=== PATIENT | male | born 1945 | race African-American/Black ===

== ENCOUNTER 2017-03-21 12:53 | Outpatient (CLI) | payer MEDICARE ==
[~2017-03-21] VITALS: Ht 180.3 cm; Wt 85.5 kg
--- NOTE | ~2017-03-21 | HEMODYNAMI ---
PATIENT:EDELMIRA BERNSTEIN MEDICAL RECORD: [id number] : [birth year] [id number] ADMISSION DATE: 03/21/17 Generatedon:03/22/201713:10 Patient name: EDELMIRA BERNSTEIN Patient #: [id number] : 1945 Date of study: 03/22/2017 Page: Of Hemodynamic Procedure Report Patient Data Patient Demographics Procedure consent was obtained First Name: EDELMIRA Gender: Male Last Name: DAY : 1945 Patient #: [id number] Age: 71 year(s) Race: Black SSN: [id number] Additional ID: [id number] Contact details Address: [address] [place] [address] [address] State: [place] City: [facility] Zip code: [address] Admission Admission Data Admission Date: 03/21/2017 Admission Time: 12:53 Arrival Date: 03/21/2017 Arrival Time: 12:53 Admit Source: Other Insurance Payor: Medicare Room #: D.2119 Weight (lbs.): 188 Weight (kg.): 85.28 Lab Results Lab Result Date: 03/22/2017 Lab Result Time: 0:00 Biochemistry Name Units Result Min Max BUN mg/dl 17 --(---*)-- 7 18 Creatinine mg/dl 1.1 --(--*-)-- 0.6 1.3 CBC Name Units Result Min Max Hemoglobin g/dl 13.2 -*(----)-- 13.5 17.5 Procedure Procedure Types Cath Procedure Diagnostic Procedure [facility] w/Coronaries PCI Procedure Coronary Stent Initial Miscellaneous Procedures Moderate Sedation up to 30 minutes Procedure Description Procedure Date Procedure Date: 03/22/2017 Procedure Start Time: 12:56 Procedure End Time: 13:08 Procedure Staff Name Function Lopez Malave MD Performing Physician Ayanna Bourgeois RT Scrub Jayro Castaneda RN Nurse Lacey Olea RT Monitor Procedure Data Cath Procedure Fluoroscopy Diagnostic fluoroscopy Total fluoroscopy Time: 2.4 time: 2.4 min min Diagnostic fluoroscopy Total fluoroscopy dose: dose: 221.29 mGy 221.29 mGy Contrast Material Contrast Material Type Amount (ml) Isovue 370 86 Entry Location Entry Primary Successful Side Size Upsize Upsize Entry Closure [place] ccessful Closure Location (Fr) 1 (Fr) 2 (Fr) Remarks Device Remarks Radial Right 6 Fr Mechanical artery Short Compression Estimated blood loss: 5 ml Diagnostic catheters Device Type Used For End Catheter Placement Yee Care Dexterity 5Fr Multi-vessel OLVERA 4.0 catheter (NO Angiography CHARGE) Procedure Complications No complications Procedure Medications Medication Administration Route Dosage Oxygen NC 2 l/min Lidocaine 2% added to field 20 Heparin Flush Bag added to field 2 bags (1000units/500ml NS) 0.9% NaCl I.V. 100 ml/hr Versed I.V. 1 mg Fentanyl I.V. 50 mcg Radial Cocktail I.A. 1 syringe (Verapomil 2mg/Nitro 400mcg/Heparin 1500units) Versed I.V. 1 mg Fentanyl I.V. 50 mcg Lopressor I.V. 5 mg Heparin Bolus I.V. 4000 units Plavix P.O. 75 mg Hemodynamics Rest HGB: 13.2 (g/dl) Heart Rate: 94 (bpm) Snapshots Pre Cath Intra NCS Post Cath Vital Signs Time Heart Resp SPO2 NIBP (mmHg) Rhythm Pain Sedation Rate (ipm) (%) Status Level (bpm) 12:42:11 97 14 97 166/109(140) NSR 0 (11) 10(A) , No pain 12:46:27 94 16 96 158/104(142) NSR 0 (11) 10(A) , No pain 12:50:47 99 14 95 162/95(133) NSR 0 (11) 10(A) , No pain 12:55:09 99 15 94 163/102(138) NSR 0 (11) 9(A) , No pain 12:59:11 129 16 94 128/98(109) ST 0 (11) 9(A) , No pain 13:03:21 89 19 94 142/90(109) NSR 0 (11) 9(A) , No pain 13:07:33 82 15 95 141/92(119) NSR 0 (11) 10(A) , No pain Medications Time Medication Route Dose Verified Delivered Reason Note s Effectiveness by by 12:40:24 Oxygen NC 2 l/min Lopez Dial used for Frieda Castaneda RN procedure 12:40:31 Lidocaine 2% added 20ml Lopez Marroquin for local to vial Frieda Malave MD anesthetic field 12:40:38 Heparin Flush added 2 bags Lopez Marroquin used for Bag to Frieda Malave MD procedure (1000units/500ml field NS) 12:40:50 0.9% NaCl I.V. 100 Lopez Dial Per physician ml/hr Frieda Castaneda RN 12:45:37 Versed I.V. 1 mg Lopez Dial for sedation Frieda Castaneda RN 12:45:43 Fentanyl I.V. 50 mcg Lopez Dial for sedation Frieda Castaneda RN 12:58:06 Radial Cocktail I.A. 1 Lopez Marroquin for (Verapomil syringe Frieda Malave MD vasodilation 2mg/Nitro 400mcg/Heparin 1500units) 12:58:17 Versed I.V. 1 mg Lopez Dial for sedation Frieda Castaneda RN 12:58:21 Fentanyl I.V. 50 mcg Lopez Dial for sedation Frieda Castaneda RN 12:59:59 Lopressor I.V. 5 mg Lopez Dial Per physician Frieda Castaneda RN 13:02:26 Heparin Bolus I.V. 4000 Lopez Dial for veri fied units Frieda Castaneda RN anticoagulation with dr malave 13:08:22 Plavix P.O. 75 mg Lopez Dial for Frieda Castaneda RN antiplatelet therapy Procedure Log Time Note 12:22:26 Informed consent obtained and on chart 12:23:01 Arrival Date: 03/21/2017 12:53:00 PM 12:23:14 Insurance Payor : Medicare 12:23:15 Admit Source: Other 12::46 Lab Result : BUN 17 mg/dl 12::46 Lab Result : Hemoglobin 13.2 g/dl 12::46 Lab Result : Creatinine 1.1 mg/dl 12:24:03 Diagnostic Cath Status : Elective 12:24:21 Ayanna PORRAS(R) sent for patient. Start room use. 12:24:22 Time tracking: Regular hours 12:24:26 Plan of Care:Hemodynamics will remain stable., Cardiac rhythm will remain stable., Comfort level will be maintained., Respiratory function will remain adequate., Patient/ family verbilizes understanding of procedure., Procedure tolerated without complication., Recovers from procedure without complications.. 12:32:39 Patient received from Med II to CCL 3 Alert and oriented. Tansferred to table in Supine position. 12:32:40 Warm blankets applied, and katie hugger turned on for patient comfort. 12:32:40 Correct patient and procedure confirmed by team. 12:32:41 ECG and BP/O2 sat monitors applied to patient. 12:40:24 Oxygen 2 l/min NC was administered by Jayro Castaneda RN; used for procedure; 12:40:31 Lidocaine 2% 20ml vial added to field was administered by Lopez Malave MD; for local anesthetic; 12:40:38 Heparin Flush Bag (1000units/500ml NS) 2 bags added to field was administered by Lopez Malave MD; used for procedure; 12:40:50 0.9% NaCl 100 ml/hr I.V. was administered by Jayro Castaneda RN; Per physician; 12:40:55 Vital chart was started 12:41:23 Baseline sample Acquired. 12:41:29 Rhythm: sinus rhythm 12:41:31 Full Disclosure recording started 12:41:36 H&P Date Dictated: 03/22/2017 New H&P dictated by physician.. 12:41:37 Pre-procedure instructions explained to patient. 12:41:38 Pre-op teaching completed and patient verbalized understanding. 12:41:39 Family in waiting room. 12:41:40 Patient NPO since Midnight. 12:41:46 Is the patient allergic to Iodine/contrast media? No. 12:41:49 Was the patient premedicated? No 12:42:32 Is patient on blood thinner?Yes 12:42:35 ACC The patient was administered the following blood thiners within the last 24 hours: ACCPlavix 12:42:39 Patient diabetic? Yes. 12:42:44 Previous problem with sedation/anesthesia? No ? 12:42:46 Snore? Yes 12:42:47 Sleep apnea? No 12:42:49 Deviated septum? No 12:42:49 Opens mouth fully? Yes 12:42:50 Sticks out tongue? Yes 12:42:55 Airway obstruction? Yes copd 12:42:59 Dentures? Yes in tight 12:43:03 Pre procedure: right dorsailis pedis pulse 1+ Palpable, but thready & weak; easily obliterated 12:43:06 Patient pain scale 0/10 ?. 12:43:28 IV patent on arrival in right forearm with 0.9% NaCl at [facility]. 12:43:32 Lab results completed and on chart. 12:43:52 Right Radial & Right Groin area was prepped with chlora-prep and draped in sterile fashion 12:43:53 Alarms reviewed by R. N. 12:43:53 Sharps counted by scrub and verified by R.N. 12:44:01 Physician arrived 12:44:02 --------ALL STOP TIME OUT------ 12:44:02 Final Timeout: patient, procedure, and site verified with staff and physician. All members of the team are in agreement. 12:44:04 Right Radial & Right Groin site verified by team. 12:44:07 Physical assessment completed. ASA score P 2 - A patient with mild systemic disease as per Lopez Malave MD. 12:44:12 Sedation plan: IV Moderate Sedation Versed, Fentanyl 12:44:27 Use device set Radial Dx 12:44:29 Acist Syringe opened to sterile field. 12:44:29 Medline Cath Pack opened to sterile field. 12:44:29 Bag Decanter opened to sterile field. 12:44:30 Terumo 6Fr Slender Glidesheath opened to sterile field. 12:44:30 St Ayaz 260cm J .035 wire opened to sterile field. 12:44:31 Acist Hand Control opened to sterile field. 12:44:31 Acist Manifold opened to sterile field. 12:44:31 Tegaderm 4 x 4 opened to sterile field. 12:45:37 Versed 1 mg I.V. was administered by Jayro Castaneda RN; for sedation; 12:45:43 Fentanyl 50 mcg I.V. was administered by Jayro Castaneda RN; for sedation; 12:54:27 Zero performed for pressure channel P1 12:54:35 Procedure started. 12:56:08 Local anesthetic to right radial artery with Lidocaine 2% by Lopez Malave MD.INITIAL ACCESS ONLY 12:56:24 A 6 Fr Short sheath was inserted into the Right Radial artery 12:58:06 Radial Cocktail (Verapomil 2mg/Nitro 400mcg/Heparin 1500units) 1 syringe I.A. was administered by Lopez Malave MD; for vasodilation; 12:58:17 Versed 1 mg I.V. was administered by Jayro Castaneda RN; for sedation; 12:58:21 Fentanyl 50 mcg I.V. was administered by Jayro Castaneda RN; for sedation; 12:58:21 A zoiduerity 5Fr OLVERA 4.0 catheter (NO CHARGE) was advanced over the wire and used for Multi-vessel Angiography. 12:58:51 LV gram done using RICKS 12:58:54 Injector settings: Ml/sec: 5, Volume: 15, 12:58:55 LV hemodynamics recorded. 12:59:06 EF : 60 % 12:59:09 LCA angiography performed. 12:59:35 Injector settings: Ml/sec: 3, Volume: 6, 12:59:59 Lopressor 5 mg I.V. was administered by Jayro Castaneda RN; Per physician; 13:00:43 RCA angiography performed. 13:00:46 Injector settings: Ml/sec: 3, Volume: 6, 13:00:49 Catheter removed. 13:01:27 Catheter removed. 13:01:29 Proceeding to intervention. 13:01:51 Sadler Whisper J 300cm 0.014 guide wire opened to sterile field. 13:01:52 IMT ([employer]) BasixCompak Inflation Kit opened to sterile field. 13:02:21 Cordis 6FR XBLAD 3.5 guide catheter opened to sterile field. 13:02:26 Heparin Bolus 4000 units I.V. was administered by Jayro Castaneda RN; for anticoagulation; verified with dr malave 13:04:10 6 Fr xblad 3.5 guide catheter was inserted over the wire 13:04:16 whisper wire advanced. 13:04:18 Wire advanced across lesion. 13:04:40 Inflation Number: 1 A Medtronic Integrity 2.5 x 14 stent was prepped and advanced across the Mid LAD. The stent was deployed at 11 NELIDA for 0:10 (min:sec). 13:04:52 Stent catheter was removed intact over wire. 13:04:54 Wire removed. 13:04:54 Guide catheter removed. 13:05:08 Terumo TR Band Standard opened to sterile field. 13:06:17 Sheath removed intact; hemostasis achieved with Mechanical Compression to the Right Radial artery. 13:06:20 Procedure ended.(Physican Out) 13:07:06 Fluoroscopy time 02.40 minutes. 13:07:15 Flurop Dose total: 221.29 13:07:15 Fluoroscopy dose: 221.29 mGy 13:07:27 Contrast amount:Isovue 370 86ml. 13:07:28 Sharps counted by scrub and verified by R.N. 13:07:32 TR band inflated with 10cc of air. 13:07:34 Insertion/operative site no bleeding no hematoma. 13:07:41 Post right radial artery:stable 13:07:43 Post Procedure Pulses reassessed and unchanged 13:07:47 Post procedure rhythm: unchanged. 13:07:51 Estimated blood loss: 5 ml 13:07:59 Post procedure instruction explained to patient.Patient verbalizes understanding. 13:08:00 Patient needs reinforcement of post procedure teaching. 13:08:16 Procedure type changed to Cath procedure, Diagnostic procedure, LHC, LHC w/Coronaries, PCI procedure, Coronary Stent Initial, Miscellaneous Procedures, Moderate Sedation up to 30 minutes 13:08:17 Procedure and supply charges have been captured, reviewed, submitted and are correct. 13:08:21 Procedure Complication : No complications 13:08:22 Plavix 75 mg P.O. was administered by Jayro Castaneda RN; for antiplatelet therapy; 13:08:25 Vital chart was stopped 13:08:28 See physician's report for complete and final results. 13:08:30 Report given to [facility]. 13:08:34 Patient transfered to [facility] with Stretcher. 13:08:37 Procedure ended. 13:08:37 Full Disclosure recording stopped 13:08:46 ACC-PCI Only Patient was given prescriptions, or instructed by Lopez Malave MD to start/continue the following medications upon discharge: Plavix 13:08:47 End room use (Document Last) 13:10:10 Patient Weight : 85.28 kg Intervention Summary Intervention Notes Time ActionType Lesion and Equipment Action# Pressure Duration Attributes Used 13:04:40 Place stent Mid LAD Medtronic 1 11 00:10 Integrity 2.5 x 14 stent Device Usage Item Name Manufacture Quantity Catalog Hospital Part Current Minimal Lot# / Number Charge Number Stock Stock Serial# Code Acist Acist 1 [id number] 250835 879606 569731 20 Syringe Medical Systems Inc Medline Cardinal 1 [id number] 988275 65845 712492 5 Cath Pack Health Bag Microtek 1 2002S [id number] 81948 879640 5 Decanter Medical Inc. Terumo 6Fr Terumo 1 [id number] 551838 632490 365380 [address] St Ayaz 1 391760 441369 788715 629781 30 260cm J .035 wire Acist Hand Acist 1 44588 934281 574325 732896 5 Control Medical Systems Inc Acist Acist 1 00621 964564 570429 551587 5 Manifold Medical Systems Inc Tegaderm 4 3M 1 1626W 834531 270332 445220 5 x 4 Medtronic Medtronic 1 [id number] 169739 237806 5 Dexterity 5Fr OLVERA 4.0 catheter (NO CHARGE) Sadler Sadler 1 [id number] 899069 448297 150342 5 [facility] Vascular 300cm 0.014 guide wire Merit Merit 1 [id number] 241789 755781 815761 15 [employer] Medical Inflation Kit Cordis 6FR Cardinal 1 [id number] 946869 246681 535747 10 XBLAD 3.5 Health guide catheter Medtronic Medtronic 1 [id number] 413956 207242 2 [id number] Integrity 2.5 x 14 stent Terumo TR Terumo 1 [id number] 778752 485368 832030 40 Band Standard Signature Audit [place] Stage Time Signature Unsigned Intra-Procedure 03/22/2017 Lacey Olea 1:10:28 PM RT(R) Signatures Monitor : Lacey Olea RT Signature : Date : Time : [facility] [address] [place] [address]
[2017-03-21 13:45] LABS: BASOPHILS 0.3 % (0-2); EOSINOPHILS 2.1 % (0-7); HEMATOCRIT 39.3 % (42.0-54.0); HEMOGLOBIN 13.2 g/dL (13.5-17.5); IMMATURE GRANULOCYTES 0.3 % (0-5); LYMPHOCYTES 32.4 % (15-50); MCH 31.7 pg (26.0-34.0); MCHC 33.6 g/dL (31.0-37.0); MCV 94.5 fL (80.0-100.0); MEAN PLATELET VOLUME 9.5 fL (7.4-10.4); MONOCYTES 8.2 % (2-11); NEUTROPHILS 56.7 % (40-80); PLATELET COUNT 240 10x3/uL (130-400); RBC 4.16 10x6/uL (4.20-6.10); RDW 11.6 % (11.5-14.5); WBC 5.8 10x3/uL (4.8-10.8)
[2017-03-21 14:16] LABS: ALBUMIN 3.9 g/dL (3.4-5.0); ALKALINE PHOSPHATASE 68 U/L (46-116); ALT (SGPT) 22 U/L (10-68); CALC OSMOLALITY 285 mosm/kg (275-300); CALCIUM 9.1 mg/dL (8.5-10.1); CARBON DIOXIDE 29.6 mmol/L (21.0-32.0); CHLORIDE - SERUM 102 mmol/L (98-107); CREATININE - SERUM 1.1 mg/dL (0.6-1.3); GLUCOSE 237 mg/dL (74-106); POTASSIUM - SERUM 3.9 mmol/L (3.5-5.1); PROTEIN - SERUM 7.3 g/dL (6.4-8.2); SODIUM 138 mmol/L (136-145); UREA NITROGEN 17 mg/dL (7-18); eGFR NON AFRICAN AMERICAN 70 mL/min (90-120)
[2017-03-21 14:27] LABS: CHOL - HDL RATIO 5.8 ratio (2.3-4.9); CHOLESTEROL, TOTAL 191 mg/dL (0-200); CKMB 1.4 U/L (0.0-3.6); CREATINE KINASE 200 UL (21-232); HDL CHOLESTEROL 33 mg/dL (32-96); LDL CHOLESTEROL 141 mg/dL (0-100); LDL-HDL RATIO 4.3 ratio (1.5-3.5); PRO BNP 78 pg/mL (0-125); TRIGLYCERIDE 88 mg/dL (30-200); TROPONIN-I < 0.017 ng/mL (0.000-0.060)
--- NOTE | 2017-03-21 19:55 | NUR ---
RECEIVED PT TO ROOM 2118 ALERT O X3. FAMILY IN ROOM. REVIEWED HOME MEDS WITH PT AND UPDATED MED REC FOR MD REVIEW IN AM. RIGHT AC IVSL. ROOM AIR PLACED ON TELE AT THIS TIME. SR 86. ORIENTED TO ROOM AND CALL LIGHT. NO C/O CP OR SOB AT THIS TIME. WILL CONT TO MONITOR.
[2017-03-21 20:00] VITALS: BP 161/89
[2017-03-21] MEDS ORDERED: PRINIVIL20 MG PO (22:32)
[2017-03-21] MEDS ORDERED: SYMBICORT 16010.2 GM INH (22:32)
[2017-03-21] MEDS ORDERED: GLUCOPHAGE500 MG PO (22:32)
[2017-03-21] MEDS ORDERED: VENTOLIN HFA18 GM INH (22:33)
[2017-03-21 22:37] VITALS: BP 161/89; Ht 180.3 cm; Wt 85.5 kg
[2017-03-22] VITALS: BP 139/82
[2017-03-22 04:00] VITALS: BP 147/86
--- NOTE | 2017-03-22 04:40 | NUR ---
PACKAGER HAND AT BEDSIDE FOR VS. NEEDS ADDRESSED AT THIS TIME. CALL LIGHT IN REACH. WILL CONT TO MONITOR.
[2017-03-22 08:33] VITALS: BP 137/79
--- NOTE | 2017-03-22 12:25 | NUR ---
PRE-OPS GIVEN. 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
--- NOTE | 2017-03-22 13:08 | HP ---
PATIENT: EDELMIRA BERNSTEIN MEDICAL RECORD: [id number] ACCOUNT: [id number] LOCATION:[facility] D.2119 : 49 ADMISSION DATE: 03/21/17 HISTORY AND PHYSICAL EXAMINATION DIAGNOSES: 1. Unstable angina. 2. Diabetes. 3. Hypertension. HISTORY OF PRESENT ILLNESS: This is a gentleman with no previous cardiac history began having chest pain compatible with angina, 1 week ago, it has escalated, he is having multiple episodes of rest pain. His EKG is with no acute ST-T abnormalities. Troponin is normal. He continues to have episodes of chest pain, very compatible with angina. PHYSICAL EXAMINATION: GENERAL APPEARANCE: Well-nourished, well-developed, appears stated age. Level of distress, comfortable. PSYCHIATRIC: Mental status, alert, normal affect. Orientation, oriented to time, place and person. EYES: Lids and conjunctiva, noninjected. No discharge, no pallor. ENT: Lips, teeth, gums, normal dentition. Oropharynx, no cyanosis, no pallor. NECK: Carotid arteries, bilateral normal upstroke, no bruits, no thrills. JUGULAR VEINS: No jugular venous pressure or distention. CERVICAL LYMPH NODES: Nontender, nonenlarged. THYROID: Not enlarged. Nontender. No nodules. LUNGS: Respiratory effort, unlabored. CHEST: Normal curvature. No thoracic deformity. No chest wall tenderness. Percussion, resonant. Auscultation, clear. No wheezes, no rales, no rhonchi. CARDIOVASCULAR: Precordial exam, nondisplaced. No heaves or pericardial thrills. Rate and rhythm, regular. Heart sounds, normal S1, normal S2. No S3, no gallop, no rub. Systolic murmur, not heard. Diastolic murmur, not heard. EXTREMITIES: No cyanosis, no edema. Peripheral pulses, full and equal in all extremities, except as noted. No bruits appreciated. ABDOMEN: Soft, nondistended. Normal aorta. No bruit. Nontender. No masses. Liver, nontender, no hepatomegaly. Spleen, nontender, no splenomegaly. MUSCULOSKELETAL: No joint tenderness. No joint swelling. No erythema. NEUROLOGICAL: Normal gait, normal strength, normal tone. SKIN: Warm and dry. REVIEW OF SYSTEMS: The patient reports easy bruising but reports no swollen glands. The patient reports no fever, no night sweats, no significant weight gain, no significant weight loss. No significant exercise tolerance. The patient reports no dry eyes, no irritation, no vision change. Patient reports no difficulty hearing and no ear pain. Patient reports no frequent nose bleeds or nose and sinus problems. Patient reports on arm pain on exertion. No shortness of breath while lying down. No history of heart murmur. Patient reports no cough, no wheezing or coughing up blood. Patient reports no abdominal pain, no vomiting. Normal appetite. No diarrhea and not vomiting blood. No nausea and no constipation. Patient reports no incontinence. No difficulty urinating. No hematuria. No increased frequency. Patient reports no muscle aches. No weakness, no arthralgias, no back pain. No swelling of the extremities. Patient reports no abnormal mole, no jaundice, no rashes. Reports no loss of consciousness. No weakness and no numbness. No seizures, dizziness, HISTORY AND PHYSICAL [id number] DAY,EDELMIRA or headaches. The patient reports no depression, no sleep disturbance, feeling safe in a relationship and no alcohol abuse. Patient reports on fatigue. Reports no runny nose or sinus pressure. No itching, no hives, and no frequent sneezing. OVERALL IMPRESSION: Escalating unstable angina, most likely has hemodynamically significant coronary artery disease. We will proceed with coronary angiography in the a.m. Further care depends upon findings of the angiography. TRANSINT:[id number] Voice Confirmation ID: [id number] DOCUMENT ID: [id number] PUNEET CARDENAS MD at 1308 CC: [id number] DICTATION DATE: 03/21/17 1603 ANDROID ARCHITECT: 03/21/17 1727 [facility] [address] [place] [address]
[2017-03-22 13:17] VITALS: BP 160/92
--- NOTE | 2017-03-22 13:33 | NUR ---
BACK FROM BIOLOGICAL SCIENTIST. VS WNL. RIGHT WRIST STABLE WITH TR BAND INTACT. WILL MONITOR.
[2017-03-22] MEDS ORDERED: PLAVIX75 MG PO (13:58)
[2017-03-22] MEDS ORDERED: ASPIRIN81 MG PO (13:59)
[2017-03-22 17:30] VITALS: BP 176/94
--- NOTE | 2017-03-22 17:40 | NUR ---
TR BAND DCD WITHOUT BLEEDING OR HEMATOMA NOTED. IV AND TELEMETRY DCD. DC PLANS GIVEN. UNDERSTANDING VOICED.
--- NOTE | 2017-03-22 18:00 | NUR ---
ESCORTED TO CAR BY W/C.
--- NOTE | 2017-03-24 16:36 | OP ---
PATIENT NAME: EDELMIRA BERNSTEIN MEDICAL RECORD: [id number] :49 LOCATION:D.CAT ADMISSION DATE: SURGEON: PUNEET CARDENAS MD DATE OF OPERATION: 03/22/2017 PROCEDURES: 1. PTCA stent LAD. 2. Left heart catheterization. 3. Selective coronary angiography. 4. Left ventriculogram. INDICATIONS: Angina and coronary artery disease. PROCEDURE IN DETAIL: After informed consent was obtained and after detailed explanation of risks, benefits as well as alternative therapies, the patient elected to proceed with angiogram and angioplasty. The right radial area was prepped and draped in normal sterile fashion. Right radial artery was cannulated via modified Seldinger technique with placement of 6-Turkmen sheath. All catheters exchanged through this sheath. FINDINGS: The left ventriculogram was performed in standard 30-degree RICKS view, reveals good cardiac wall motion throughout all segments. Overall ejection fraction estimated at 60%. SELECTIVE CORONARY ANGIOGRAPHY: 1. Left main showed no significant angiographic disease. 2. Left anterior descending has 80% stenosis in the mid to distal vessel. 3. Left circumflex has moderate irregularities, but no flow-limiting stenosis. 4. Right coronary has a 70%-80% stenosis in the mid vessel. PTCA STENT OF THE LAD: The stent used was a 2.5 x 14 mm Integrity. Result was 0% residual stenosis. OVERALL IMPRESSION: Successful percutaneous transluminal coronary angioplasty stent of the left anterior descending going from 80% initial stenosis to 0% residual. PLAN: PTCA stent of the RCA in the near future. TRANSINT:[id number] Voice Confirmation ID: [id number] DOCUMENT ID: [id number] PUNEET CARDENAS MD at 1636 CC: [id number] DICTATION DATE: 03/22/17 1309 PUMP ERECTOR: 03/22/172056 [facility] CLI 03/22/17 [place] [address]
--- NOTE | 2017-03-24 16:36 | DS ---
PATIENT:EDELMIRA TESFAYE :49 MEDICAL RECORD: [id number] DISCHARGE SUMMARY ADMISSION DATE: 03/21/17 DISCHARGE DATE: 03/22/17 DATE OF DISCHARGE: 03/22/2017 DIAGNOSES: 1. Angina. 2. Coronary artery disease. 3. Percutaneous transluminal coronary angioplasty stent left anterior descending this admission. 4. Hypertension. 5. Hyperlipidemia. HOSPITAL COURSE: Mr. Tesfaye presents with anginal symptomatology, found to have 2-vessel disease of the LAD and RCA, underwent successful PTCA stent of the LAD, was discharged home with the addition of aspirin and Plavix to his medical regimen. We will follow up next week for PTCA stent of the RCA. TRANSINT:[id number] Voice Confirmation ID: [id number] DOCUMENT ID: [id number] PUNEET CARDENAS MD at 1636 CC: [id number] DICTATION DATE: 03/22/17 1307 LICENSED LOAN OFFICER: 03/23/17 0923 DEP CLI 03/22/17 [place] [id number] [place] [address]
== END 2017-03-22 18:01 | disposition home or self-care (01) ==
LOC: D.CATH 12:53 → D.M2 12:53 → D.ER 12:53 → D.M2 20:08 → EDSTATUS 03-22 08:00 → D.CATH 03-22 18:01
PROVIDERS: Emergency Medicine
DX: I25.110 Atherosclerotic heart disease of native coronary artery with unstable angina pectoris (principal); E11.9 Type 2 diabetes mellitus without complications; I10 Essential (primary) hypertension; Z01.812 Encounter for preprocedural laboratory examination

== ENCOUNTER 2017-05-01 08:37 | Outpatient (CLI) | payer MEDICARE ==
[~2017-05-01] VITALS: Ht 182.9 cm; Wt 85.9 kg
--- NOTE | ~2017-05-01 | OP ---
PATIENT NAME: EDELMIRA BERNSTEIN MEDICAL RECORD: [id number] :49 LOCATION:D.CAT ADMISSION DATE: SURGEON: PUNEET CARDENAS MD DATE OF OPERATION: 05/01/2017 PROCEDURES: 1. PTCA stent of the RCA. 2. Selective coronary angiography. INDICATION: Angina and coronary artery disease. DESCRIPTION OF PROCEDURE: After informed consent was obtained and after a detailed description of the risks, benefits as well as alternative therapies, the patient elected to proceed with angiogram and angioplasty. The right femoral area was prepped and draped in normal sterile fashion. The right femoral artery was cannulated via modified Seldinger technique with placement of a 7-Burundian sheath. All catheters exchanged through this sheath. FINDINGS: The right coronary has 75% stenosis in the mid vessel. This was addressed with a 3.0 x 15 mm Integrity stent. Result was 0% residual stenosis. OVERALL IMPRESSION: Successful percutaneous transluminal coronary angioplasty stent of the right coronary artery going from 75% initial stenosis to 0% residual. TRANSINT:[id number] Voice Confirmation ID: [id number] DOCUMENT ID: [id number] PUNEET CARDENAS MD CC: [id number] DICTATION DATE: 05/01/17 1135 SALESFORCE CONSULTANT: 05/01/17 1609 DEP CLI 05/01/17 [place] [id number] [place] [id number]
--- NOTE | ~2017-05-01 | HEMODYNAMI ---
PATIENT:EDELMIRA BERNSTEIN MEDICAL RECORD: [id number] : 49 LOCATION:[facility] ADMISSION DATE: 05/01/17 Generatedon:05/01/201711:39 Patient name: EDELMIRA BERNSTEIN Patient #: [id number] : 1945 Date of study: 05/01/2017 Page: Of Hemodynamic Procedure Report Patient Data Patient Demographics Procedure consent was obtained First Name: EDELMIRA Gender: Male Last Name: DAY : 1945 Patient #: [id number] Age: 71 year(s) Race: Black SSN: [id number] Additional ID: [id number] Contact details Address: [address] [place] [address] [facility] State: [place] City: [facility] Zip code: [address] Past Medical History Allergies: No known allergies Admission Admission Data Admission Date: 05/01/2017 Admission Time: 8:37 Arrival Date: 05/01/2017 Arrival Time: 0:00 Admit Source: Other Height (in.): 72 BSA: 2.08 (m2) Height (cm.): 182.88 BMI: 25.5 (kg/m2) Weight (lbs.): 188 Weight (kg.): 85.28 Lab Results Lab Result Date: 05/01/2017 Lab Result Time: 0:00 Biochemistry Name Units Result Min Max BUN mg/dl 11 --(-*--)-- 7 18 Creatinine mg/dl 1.1 --(--*-)-- 0.6 1.3 CBC Name Units Result Min Max Hemoglobin g/dl 12.7 -*(----)-- 13.5 17.5 Procedure Procedure Types Cath Procedure PCI Procedure Coronary Stent Initial Miscellaneous Procedures Moderate Sedation up to 15 minutes Procedure Description Procedure Date Procedure Date: 05/01/2017 Procedure Start Time: 11:27 Procedure End Time: 11:38 Procedure Staff Name Function Lopez Malave MD Performing Physician Ayanna Bourgeois RT Scrub Rebeca Mcarthur RN Nurse Dami Villalba RT Monitor Procedure Data Cath Procedure Fluoroscopy Diagnostic fluoroscopy Total fluoroscopy Time: 1 time: 1 min min Diagnostic fluoroscopy Total fluoroscopy dose: dose: 38.6 mGy 38.6 mGy Contrast Material Contrast Material Type Amount (ml) Isovue 300 26 Entry Location Entry Primary Successful Side Size Upsize Upsize Entry Closure Succes sful Closure Location (Fr) 1 (Fr) 2 (Fr) Remarks Device Remarks Femoral Right 7 Fr Exoseal artery Short Estimated blood loss: 10 ml Procedure Medications Medication Administration Route Dosage Oxygen NC 2 l/min Heparin Flush Bag added to field 2 bags (1000units/500ml NS) Lidocaine 2% added to field 20 Versed I.V. 1 mg Fentanyl I.V. 50 mcg Fentanyl I.V. 50 mcg Versed I.V. 1 mg Heparin Bolus I.V. 4000 units Hemodynamics Rest BSA: 2.08 (m2) HGB: 12.7 (g/dl) O2 Consumption: Estimated: 258.79 (ml/min) O2 Co nsumption indexed: Estimated:124.42 (ml/min/m) Heart Rate: 93 (bpm) Snapshots Pre Cath Intra NCS Post Cath Vital Signs Time Heart Resp SPO2 NIBP (mmHg) Rhythm Pain Sedation Rate (ipm) (%) Status Level (bpm) 11:05:41 94 26 97 187/119(163) NSR 0 (11) 10(A) , No pain 11:10:24 92 20 97 184/116(156) NSR 0 (11) 10(A) , No pain 11:14:58 95 18 92 169/109(139) NSR 0 (11) 10(A) , No pain 11:19:33 96 15 98 165/112(139) NSR 0 (11) 10(A) , No pain 11:24:03 97 15 99 159/101(128) NSR 0 (11) 10(A) , No pain 11:28:33 98 15 99 159/110(134) NSR 0 (11) 9(A) , No pain 11:32:58 104 23 97 143/109(124) NSR 0 (11) 9(A) , No pain 11:35:40 108 15 97 149/117(138) NSR 0 (11) 9(A) , No pain Medications Time Medication Route Dose Verified Delivered Reason Notes Effectiveness by by 11:04:41 Oxygen NC 2 Lopez Rebeca for arrhythmia l/min Frieda Mcarthur RN 11:04:50 Heparin Flush added 2 Lopez Marroquin used for Bag to bags Frieda Malave MD procedure (1000units/500ml field NS) 11:04:59 Lidocaine 2% added 20ml Lopezshay Marroquin used for to vial Frieda Malave MD procedure field 11:24:00 Versed I.V. 1 mg Lopez Rebeca for sedation Frieda Mcarthur RN 11:24:06 Fentanyl I.V. 50 Lopez Rebeca for sedation mcg Frieda Mcarthur RN 11:26:24 Fentanyl I.V. 50 Lopez Rebeca for sedation mcg Frieda Mcarthur RN 11:26:33 Versed I.V. 1 mg Lopez Rebeca for sedation Frieda Mcarthur RN 11:28:18 Heparin Bolus I.V. 4000 Lopez Angelaca for dose units Frieda Mcarthur RN anticoagulation verified wt dr malave Procedure Log Time Note 10:57:48 Patient Height : 182.88 cm 10:57:54 Patient Weight : 85.28 kg 10:57:56 Arrival Date: 05/01/2017 12:00:00 AM 10:57:57 Admit Source: Other 10:59:49 Dami Villalba RT(R) (CV) sent for patient. Start room use. 10:59:52 Diagnostic Cath status Elective 10:59:54 Time tracking: Regular hours 11:00:00 Plan of Care:Hemodynamics will remain stable., Cardiac rhythm will remain stable., Comfort level will be maintained., Respiratory function will remain adequate., Patient/ family verbilizes understanding of procedure., Procedure tolerated without complication., Recovers from procedure without complications.. 11:04:12 Vital chart was started 11:04:41 Oxygen 2 l/min NC was administered by Rebcea Mcarthur RN; for arrhythmia; 11:04:50 Heparin Flush Bag (1000units/500ml NS) 2 bags added to field was administered by Lopez Malave MD; used for procedure; 11:04:59 Lidocaine 2% 20ml vial added to field was administered by Lopez Malave MD; used for procedure; 11:05:57 Patient received from Pre/Post Procedure Room to CCL 3 Alert and oriented. Tansferred to table in Supine position. 11:05:59 Warm blankets applied, and katie hugger turned on for patient comfort. 11:05:59 Correct patient and procedure confirmed by team. 11:06:01 Signed procedure consent form obtained from patient. 11:06:02 ECG and BP/O2 sat monitors applied to patient. 11:06:03 Baseline sample Acquired. 11:06:06 Rhythm: sinus rhythm 11:06:08 Full Disclosure recording started 11:08:56 H&P Date Dictated: 04/24/2017 Within 30 days and on chart., H&P Addendum completed by physician on day of procedure. (MUST COMPLETE FOR ALL OUTPATIENTS). 11:08:59 Pre-procedure instructions explained to patient. 11:09:01 Pre-op teaching completed and patient verbalized understanding. 11:09:03 Family unavailable. 11:09:05 Patient NPO since Midnight. 11:09:24 Patient allergic to No known allergies 11:09:27 Is the patient allergic to Iodine/contrast media? No. 11:09:30 Is patient on blood thinner?Yes 11:09:34 ACC The patient was administered the following blood thiners within the last 24 hours: ACCPlavix 11:09:36 Patient diabetic? Yes. 11:09:39 If diabetic: On Metformin? Yes 11:09:46 If on Metformin: Last Dose? 04/29/2017 11:09:51 Previous problem with sedation/anesthesia? No ? 11:09:53 Snore? Yes 11:09:55 Sleep apnea? No 11:09:57 Deviated septum? No 11:10:03 Opens mouth fully? Yes 11:10:04 Sticks out tongue? Yes 11:10:12 Airway obstruction? Yes COPD 11:10:21 Dentures? Yes IN TIGHT UPPER 11:10:28 Pre procedure: right dorsailis pedis pulse 1+ Palpable, but thready & weak; easily obliterated 11:10:33 Patient pain scale 0/10 ?. 11:10:40 IV patent on arrival in left forearm with 0.9% NaCl at KVO. 11:11:09 Lab Result : BUN 11 mg/dl 11:11:09 Lab Result : Hemoglobin 12.7 g/dl 11:11:09 Lab Result : Creatinine 1.1 mg/dl 11:11:13 Lab results completed and on chart. 11:11:18 Right groin area was prepped with chlora-prep and draped in sterile fashion 11:11:19 Alarms reviewed by R. N. 11:11:22 Sharps counted by scrub and verified by R.N. 11:13:07 PROCEDURE RISK AND BENEFITS EXPLAINED IN THE OFFICE 11:13:31 Use device set Femoral PCI 11:13:33 Acist Syringe opened to sterile field. 11:13:33 Acist Hand Control opened to sterile field. 11:13:35 Bag Decanter opened to sterile field. 11:13:36 Medline Cath Pack opened to sterile field. 11:13:47 St Ayaz 260cm J .035 wire opened to sterile field. 11:13:49 Merit BasixCompak Inflation Kit opened to sterile field. 11:13:50 Acist Manifold opened to sterile field. 11:13:51 Tegaderm 4 x 4 opened to sterile field. 11:15:59 Zero performed for pressure channel P1 11:23:33 Physician arrived 11::33 --------ALL STOP TIME OUT------ 11:23:34 Final Timeout: patient, procedure, and site verified with staff and physician. All members of the team are in agreement. 11:23:37 Right groin site verified by team. 11:23:42 Physical assessment completed. ASA score P 2 - A patient with mild systemic disease as per Lopez Malave MD. 11:23:46 Sedation plan: IV Moderate Sedation Versed, Fentanyl 11:24:00 Versed 1 mg I.V. was administered by Rebeca Mcarthur RN; for sedation; 11:24:06 Fentanyl 50 mcg I.V. was administered by Rebeca Mcarthur RN; for sedation; 11::24 Fentanyl 50 mcg I.V. was administered by Rebeca Mcarthur RN; for sedation; ::33 Versed 1 mg I.V. was administered by Rebeca Mcarthur RN; for sedation; 11:27:35 Terumo 7Fr [place] Sheath opened to sterile field. 11:27:35 Medtronic Launcher 7Fr AR 2.0 SH guide catheter opened to sterile field. 11:27:47 PCI Cath status Elective 11:27:53 Procedure started. 11::58 Local anesthetic to right femoral artery with Lidocaine 2% by Lopez Malave MD.INITIAL ACCESS ONLY 11::18 Heparin Bolus 4000 units I.V. was administered by Rebeca Mcarthur RN; for anticoagulation; dose verified wtih dr malave 11::33 A 7 Fr Short sheath was inserted into the Right Femoral artery 11::44 7 Fr AR 2 SH guide catheter was inserted over the wire 11:30:25 WHISPER wire advanced. 11:30:26 Wire advanced across lesion. 11:30:54 Inflation Number: 1 A StepLeadertronic Integrity 3.0 X 15 stent was prepped and advanced across the Prox RCA. The stent was deployed at 13 NELIDA for 0:10 (min:sec). 11:31:03 Stent catheter was removed intact over wire. 11:31:04 Wire removed. 11:31:05 Guide catheter removed. 11:31:17 Cordis 7Fr Exoseal opened to sterile field. 11:32:48 Sheath removed intact; hemostasis achieved with Exoseal to the Right Femoral artery. 11:32:56 Procedure ended.(Physican Out) 11:33:11 Fluoroscopy time 01.00 minutes. 11:33:17 Flurop Dose total: 38.6 11:33:17 Fluoroscopy dose: 38.6 mGy 11:33:21 Contrast amount:Isovue 300 26ml. 11:33:23 Sharps counted by scrub and verified by R.N. 11:37:01 Insertion/operative site no bleeding no hematoma. 11:37:04 Post-op/insertion site Right Femoral artery dressed using a 4 x 4 and Tegaderm. 11:37:09 Post right femoral artery:stable 11:37:12 Post Procedure Pulses reassessed and unchanged 11:37:16 Post-procedure physical assessment completed. ASA score P 2 - A patient with mild systemic disease as per Lopez Malave MD. 11:37:23 Post procedure rhythm: sinus tachycardia 11:37:27 Estimated blood loss: 10 ml 11:37:34 Post procedure instruction explained to patient.Patient verbalizes understanding. 11:37:35 Patient needs reinforcement of post procedure teaching. 11:37:40 Procedure and supply charges have been captured, reviewed, submitted and are correct. 11:37:48 Vital chart was stopped 11:37:50 See physician's report for complete and final results. 11:37:53 Report given to Pre/Post Procedure Room. 11:37:57 Patient transfered to Pre/Post Procedure Room with Stretcher. 11:37:59 Procedure ended. 11:37:59 Full Disclosure recording stopped 11:38:04 End room use (Document Last) Intervention Summary Intervention Notes Time ActionType Lesion and Equipment Action# Pressure Duration Attributes Used 11:30:54 Place stent Prox RCA Medtronic 1 13 00:10 Integrity 3.0 X 15 stent Device Usage Item Name Manufacture Quantity Catalog Hospital Part Current Minimal L ot# / Number Charge Number Stock Stock Serial# Code Acist Acist 1 68063 954936 399318 014938 20 Syringe Medical Systems Inc Acist Hand Acist 1 83588 998054 233804 598828 5 Control Medical Systems Inc Bag Microtek 1 2002S 924919 16943 508734 5 Vacunek Medical Inc. Medline Cardinal 1 [id number] 08858 715369 [address] [facility] [address] Ayaz 1 516146 366774 717517 652543 30 260cm J .035 wire Merit Merit 1 [id number] 189735 965352 550823 15 BasixCompak Medical Inflation Kit Acist Acist 1 69721 583808 918450 354576 5 Manifold Medical Systems Inc Tegaderm 4 3M 1 1626W 635849 784358 438318 5 x 4 Terumo 7Fr Terumo 1 [id number] 385112 515338 392707 5 Lancaster Sheath Medtronic Medtronic 1 [id number] 148235 014712 423356 0 Launcher 7Fr AR 2.0 SH guide catheter Medtronic Medtronic 1 [id number] 287145 656018 1 0 [id number] Integrity 3.0 X 15 stent Cordis 7Fr Cardinal 1 [id number] 715650 976850 003032 5 [facility] Signature Audit [place] Stage Time Signature Unsigned Intra-Procedure 05/01/2017 Dami Villalba 11:39:11 AM RT(R) (CV) Signatures Monitor : Dami Villalba RT Signature : Date : Time : [facility] [address] [place] [address]
[~2017-05-01 08:37] MED LIST: ASPIRIN81 MG PO; GLUCOPHAGE500 MG PO; PLAVIX75 MG PO; PRINIVIL20 MG PO; SYMBICORT 16010.2 GM INH; VENTOLIN HFA18 GM INH
[2017-05-01 09:18] VITALS: BP 176/98; Ht 182.9 cm; Wt 85.9 kg
[2017-05-01 09:32] LABS: BASOPHILS 0.2 % (0-2); EOSINOPHILS 4.2 % (0-7); HEMATOCRIT 38.6 % (42.0-54.0); HEMOGLOBIN 12.7 g/dL (13.5-17.5); IMMATURE GRANULOCYTES 0.2 % (0-5); LYMPHOCYTES 38.3 % (15-50); MCH 31.4 pg (26.0-34.0); MCHC 32.9 g/dL (31.0-37.0); MCV 95.5 fL (80.0-100.0); MEAN PLATELET VOLUME 9.4 fL (7.4-10.4); NEUTROPHILS 46.1 % (40-80); PLATELET COUNT 234 10x3/uL (130-400); RBC 4.04 10x6/uL (4.20-6.10); RDW 11.5 % (11.5-14.5); WBC 4.8 10x3/uL (4.8-10.8)
[2017-05-01 09:40] LABS: ANION GAP 9.9 mmol/L (8-16); CALCIUM 8.8 mg/dL (8.5-10.1); CARBON DIOXIDE 31.1 mmol/L (21.0-32.0); CREATININE - SERUM 1.1 mg/dL (0.6-1.3)
--- NOTE | 2017-05-01 12:00 | NUR ---
RIGHT GROIN CDI, NO HEMATOMA OR BLEEDING NOTED, CONTINUES TO REST WITH AT SIDE.
--- NOTE | 2017-05-01 12:30 | NUR ---
RESTING IN BED WITH EYES CLOSED. 2L NC, NO RESP DISTRESS NOTED. RIGHT GROIN 7F EXOSEAL CDI, NO BLEEDING OR HEMATOMA NOTED. NO C/O CHEST PAIN OR NAUSEA AT THIS TIME. FAMILY AT BEDSIDE, CALL LIGHT WITHIN REACH.
--- NOTE | 2017-05-01 12:45 | NUR ---
2L NC, NO RESP DISTRESS NOTED. RIGHT GROIN 7F EXOSEAL CDI, NO BLEEDING OR HEMATOMA NOTED. VSS. NO C/O CHEST PAIN. WILL CONTINUE TO MONITOR.
--- NOTE | 2017-05-01 15:15 | NUR ---
IV D'C WITH CATH TIP INTACT, WRITTEN AND VERBAL D'C INSTRUCTIONS GIVEN TO PT AND UNDERSTOOD. D'C HOME WITH SISTER
== END 2017-05-01 15:35 | disposition home or self-care (01) ==
LOC: D.CATH 08:37
PROVIDERS: Internal Medicine Interventional Cardiology
DX: I25.119 Atherosclerotic heart disease of native coronary artery with unspecified angina pectoris (principal); Z01.812 Encounter for preprocedural laboratory examination

== ENCOUNTER → 2017-09-27 07:44 | Outpatient (CLI) | payer MEDICARE ==
[~2017-09-27] VITALS: Ht 182.9 cm; Wt 87.8 kg
--- NOTE | ~2017-09-27 | HEMODYNAMI ---
PATIENT:EDELMIRA BERNSTEIN MEDICAL RECORD: [id number] : 49 LOCATION:[facility] ADMISSION DATE: 09/27/17 Generatedon:09/27/201711:12 Patient name: EDELMIRA BERNSTEIN Patient #: [id number] : 1945 Date of study: 09/27/2017 Page: Of Hemodynamic Procedure Report Patient Data Patient Demographics Procedure consent was obtained First Name: EDELMIRA Gender: Male Last Name: DAY : 1945 Patient #: [id number] Age: 72 year(s) Race: Black SSN: [id number] Additional ID: [id number] Contact details Address: [address] [place] [address] [facility] State: [place] City: [facility] Zip code: [address] Past Medical History Allergies: No known allergies Admission Admission Data Admission Date: 09/27/2017 Admission Time: 7:44 Arrival Date: 09/27/2017 Arrival Time: 10:30 Admit Source: Other Insurance Payor: Medicare Height (in.): 72 BSA: 2.11 (m2) Height (cm.): 182.88 BMI: 26.45 (kg/m2) Weight (lbs.): 195 Weight (kg.): 88.45 Lab Results Lab Result Date: 09/27/2017 Lab Result Time: 0:00 Biochemistry Name Units Result Min Max BUN mg/dl 9 --(*---)-- 7 18 Creatinine mg/dl 1 --(--*-)-- 0.6 1.3 CBC Name Units Result Min Max Hemoglobin g/dl 12.1 *-(----)-- 13.5 17.5 Procedure Procedure Types Cath Procedure Diagnostic Procedure [facility] w/Coronaries PCI Procedure Coronary Stent Coronary Stent Initial Miscellaneous Procedures Procedure Description Procedure Date Procedure Date: 09/27/2017 Procedure Start Time: 10:54 Procedure End Time: 11:12 Procedure Staff Name Function Lopez Malave MD Performing Physician Lacey Olea RT Monitor Dami Villalba RT Scrub Jayro Castaneda RN Nurse Indication Angina Procedure Data Cath Procedure Fluoroscopy Diagnostic fluoroscopy Total fluoroscopy Time: 3.4 time: 3.4 min min Diagnostic fluoroscopy Total fluoroscopy dose: dose: 270.24 mGy 270.24 mGy Contrast Material Contrast Material Type Amount (ml) Isovue 300 82 Entry Location Entry Primary Successful Side Size Upsize Upsize Entry Closure Succes sful Closure Location (Fr) 1 (Fr) 2 (Fr) Remarks Device Remarks Femoral Right 5 Fr Exoseal artery Estimated blood loss: 5 ml Diagnostic catheters Device Type Used For End Catheter Placement Cordis 5Fr Pigtail Procedure Catheter (MP) Cordis 5Fr JL 4.0 Procedure Catheter (MP) Cordis 5Fr 3DRC Catheter Procedure (MP) Procedure Medications Medication Administration Route Dosage Oxygen NC 2 l/min Heparin Flush Bag added to field 2 bags (1000units/500ml NS) 0.9% NaCl I.V. 100 ml/hr Fentanyl I.V. 50 mcg Versed I.V. 1 mg Heparin Bolus I.V. 4000 units Hemodynamics Rest BSA: 2.11 (m2) HGB: 12.1 (g/dl) O2 Consumption: Estimated: 261.04 (ml/min) O2 Co nsumption indexed: Estimated:123.72 (ml/min/m) Heart Rate: 91 (bpm) Pressure Samples Time Site Value (mmHg) Purpose Heart Use Rate(bpm) 10:55 LV 136/38,56 Snapshot 96 Snapshots Pre Cath Intra NCS Post Cath Vital Signs Time Heart Resp SPO2 etCO2 NIBP (mmHg) Rhythm Pain Sedation Rate (ipm) (%) (mmHg) Status Level (bpm) 10:09:17 88 18 97 0 161/99(135) NSR 0 (11) 10(A) , No pain 10:13:43 92 18 98 0 155/100(134) NSR 0 (11) 10(A) , No pain 10:18:07 92 14 97 0 151/104(131) NSR 0 (11) 10(A) , No pain 10:22:29 91 19 96 0 152/98(128) NSR 0 (11) 10(A) , No pain 10:26:52 89 19 96 0 150/96(130) NSR 0 (11) 10(A) , No pain 10:31:14 86 19 96 0 150/92(121) NSR 0 (11) 10(A) , No pain 10:35:34 89 20 96 0 150/97(126) NSR 0 (11) 10(A) , No pain 10:39:56 87 18 96 0 146/95(120) NSR 0 (11) 10(A) , No pain 10:44:16 93 19 97 0 151/97(117) NSR 0 (11) 10(A) , No pain 10:48:38 92 18 96 0 146/97(123) NSR 0 (11) 10(A) , No pain 10:53:00 96 18 94 0 152/96(121) NSR 0 (11) 9(A) , No pain 10:57:25 97 17 93 0 149/95(120) NSR 0 (11) 9(A) , No pain 11:01:47 98 18 92 0 147/97(122) NSR 0 (11) 9(A) , No pain 11:06:11 98 17 94 0 139/89(114) NSR 0 (11) 9(A) , No pain 11:10:29 98 16 94 0 140/93(117) NSR 0 (11) 9(A) , No pain Medications Time Medication Route Dose Verified Delivered Reason Note s Effectiveness by by 10:50:50 Oxygen NC 2 Lopez Ramírez Per physician l/min Frieda WEEKS RN 10:51:07 Heparin Flush added 2 Lopez Ramírez used for Bag to bags Frieda WEEKS venue coordinator (1000units/500ml field NS) 10:51:18 0.9% NaCl I.V. 100 Lopez Ramírez Per physician ml/hr Frieda WEEKS RN 10:51:32 Fentanyl I.V. 50 Lopez Ramírez for sedation mcg Frieda WEEKS RN 10:51:40 Versed I.V. 1 mg Lopez Ramírez for sedation Frieda WEEKS RN 11:00:39 Heparin Bolus I.V. 4000 Lopez Ramírez for units Frieda WEEKS RN anticoagulation Procedure Log Time Note 9:45:10 Dami PORRAS(R) (CV) sent for patient. Start room use. 9:54:39 Informed consent obtained and on chart 9:54:42 Diagnostic Cath Status : Elective 9:55:05 Indication : Angina 9:55:21 Time tracking: Regular hours 9:55:24 Plan of Care:Hemodynamics will remain stable., Cardiac rhythm will remain stable., Comfort level will be maintained., Respiratory function will remain adequate., Patient/ family verbilizes understanding of procedure., Procedure tolerated without complication., Recovers from procedure without complications.. 9:56:11 Patient Height : 72 inches 9:56:14 Patient Weight : 195 lbs 9:56:15 Admit Source: Other 9:56:21 Arrival Date: 09/27/2017 10:30:00 AM 9:56:27 Insurance Payor : Medicare 10:07:56 Patient received from Pre/Post Procedure Room to [facility] 3 Alert and oriented. Tansferred to table in Supine position. 10:07:57 Warm blankets applied, and katie hugger turned on for patient comfort. 10:07:58 Correct patient and procedure confirmed by team. 10:07:58 ECG and BP/O2 sat monitors applied to patient. 10:07:59 Vital chart was started 10:08:01 Baseline sample Acquired. 10:08:07 Rhythm: sinus tachycardia 10:08:09 Full Disclosure recording started 10:08:13 H&P Date Dictated: 09/27/2017 Within 30 days and on chart., H&P Addendum completed by physician on day of procedure. (MUST COMPLETE FOR ALL OUTPATIENTS). 10:08:14 Pre-procedure instructions explained to patient. 10:08:15 Pre-op teaching completed and patient verbalized understanding. 10:08:16 Family in waiting room. 10:08:18 Patient NPO since Midnight. 10:08:23 Is the patient allergic to Iodine/contrast media? No. 10:08:24 Was the patient premedicated? No 10:08:25 Is patient on blood thinner?Yes 10:08:27 ACC The patient was administered the following blood thiners within the last 24 hours: ACCPlavix 10:08:29 Patient diabetic? Yes. 10:08:30 If diabetic: On Metformin? Yes 10:08:33 If on Metformin: Last Dose? 09/26/2017 10:08:37 Previous problem with sedation/anesthesia? No ? 10:08:38 Snore? Yes 10:08:39 Sleep apnea? No 10:08:40 Deviated septum? No 10:08:41 Opens mouth fully? Yes 10:08:42 Sticks out tongue? Yes 10:08:44 Airway obstruction? No ? 10:08:48 Dentures? Yes out 10:08:52 Pre procedure: right dorsailis pedis pulse 1+ Palpable, but thready & weak; easily obliterated 10:08:54 Pre procedure: left dorsailis pedis pulse 1+ Palpable, but thready & weak; easily obliterated 10:08:56 Patient pain scale 0/10 ?. 10:09:03 IV patent on arrival in left forearm with 0.9% NaCl at [facility]. 10:09:08 Lab results completed and on chart. 10:09:12 Right groin area was prepped with chlora-prep and draped in sterile fashion 10:09:12 Alarms reviewed by R. N. 10:09:13 Sharps counted by scrub and verified by R.N. 10:11:42 Lab Result : BUN 9 mg/dl 10:11:42 Lab Result : Hemoglobin 12.1 g/dl 10:11:42 Lab Result : Creatinine 1 mg/dl 10:12:51 Use device set Femoral Dx 10:12:53 Acist Syringe opened to sterile field. 10:12:53 Bag Decanter opened to sterile field. 10:12:54 Medline Cath Pack opened to sterile field. 10:12:55 Terumo 5Fr [place] Sheath opened to sterile field. 10:12:55 St Ayaz 260cm J .035 wire opened to sterile field. 10:12:57 Acist Hand Control opened to sterile field. 10:12:57 Acist Manifold opened to sterile field. 10:12:58 Diagnostic Infinity 5Fr Multipack catheter opened to sterile field. 10:12:59 Tegaderm 4 x 4 opened to sterile field. 10:28:40 Zero performed for pressure channel P1 10:28:44 Zero performed for pressure channel P1 10:37:37 PATIENT TOLD TO HOLD FOR 48 HOURS 10:46:26 Physician arrived 10:46:27 --------ALL STOP TIME OUT------ 10:46:28 Final Timeout: patient, procedure, and site verified with staff and physician. All members of the team are in agreement. 10:46:31 Right groin site verified by team. 10:46:34 Physical assessment completed. ASA score P 2 - A patient with mild systemic disease as per Lopez Malave MD. 10:46:39 Sedation plan: IV Moderate Sedation Medication:Versed, Fentanyl 10:50:50 Oxygen 2 l/min NC was administered by Desiree RN; Per physician; 10:51:07 Heparin Flush Bag (1000units/500ml NS) 2 bags added to field was administered by Desiree RN; used for procedure; 10:51:18 0.9% NaCl 100 ml/hr I.V. was administered by Desiree RN; Per physician; 10:51:32 Fentanyl 50 mcg I.V. was administered by Desiree RN; for sedation; 10:51:40 Versed 1 mg I.V. was administered by Desiree RN; for sedation; 10:54:33 Procedure started. 10:54:49 Local anesthetic to right radial artery with Lidocaine 2% by Lopez Malave MD.INITIAL ACCESS ONLY 10:55:14 A 5 Fr sheath was inserted into the Right Femoral artery 10:55:21 A Cordis 5Fr Pigtail Catheter (MP) was advanced over the wire and used for Procedure. 10:55:49 LV gram done using RICKS 10:55:50 LV hemodynamics recorded. 10:55:57 EF : 20 % 10:56:02 Catheter removed. 10:56:07 A Cordis 5Fr JL 4.0 Catheter (MP) was advanced over the wire and used for Procedure. 10:56:48 LCA angiography performed. 10:57:06 Catheter removed. 10:57:11 A Cordis 5Fr 3DRC Catheter (MP) was advanced over the wire and used for Procedure. 10:57:33 [place] Sci Choice PT Extra Support J 300cm .014 gu opened to sterile field. 10:57:34 Merit BasixCompak Inflation Kit opened to sterile field. 10:57:41 RCA angiography performed. 10:57:48 Catheter removed. 10:57:50 Proceeding to intervention. 10:57:59 Terumo 6Fr [place] Sheath opened to sterile field. 10:58:11 Cordis 6FR XBLAD 4.0 guide catheter opened to sterile field. 10:59:08 6 Fr XBLAD 4 guide catheter was inserted over the wire 11:00:39 Heparin Bolus 4000 units I.V. was administered by Desiree DUBOSE; for anticoagulation; 11:00:53 CHOICE PT wire advanced. 11::53 Inflation number: 1 A [place] Sci Rankin 1.5 X 20 balloon was prepped and advanced across the Dist LAD, then inflated to 21 NELIDA for 0:10 (min:sec). 11:02:02 Balloon removed over the wire. 11:03:33 Inflation Number: 2 A [place] OTW 2.5 x 18 stent was prepped and advanced across the Dist LAD. The stent was deployed at 13 NELIDA for 0:10 (min:sec). 11:04:26 Stent catheter was removed intact over wire. 11:04:26 Wire removed. 11:04:27 Guide catheter removed. 11:04:38 Cordis 6Fr Exoseal opened to sterile field. 11:05:25 Sheath removed intact; hemostasis achieved with Exoseal to the Right Femoral artery. 11:05:28 Procedure ended.(Physican Out) 11:05:33 Fluoroscopy time 03.40 minutes. 11:05:50 Flurop Dose total: 270.24 11:05:50 Fluoroscopy dose: 270.24 mGy 11:05:56 Contrast amount:Isovue 300 82ml. 11:05:57 Sharps counted by scrub and verified by R.N. 11:09:16 Procedure type changed to Cath procedure, Diagnostic procedure, LHC, LHC w/Coronaries, PCI procedure, Coronary Stent, Coronary Stent Initial, Miscellaneous Procedures 11:10:26 Insertion/operative site no bleeding no hematoma. 11:10:30 Post-op/insertion site Right Femoral artery dressed using a 4 x 4 and Tegaderm. 11:10:35 Post right femoral artery:stable 11:11:07 Post procedure: right dorsailis pedis pulse 1+ Palpable, but thready & weak; easily obliterated. 11:11:36 Post-procedure physical assessment completed. ASA score P 2 - A patient with mild systemic disease as per Lopez Malave MD. 11:11:41 Post procedure rhythm: sinus rhythm 11:11:44 Estimated blood loss: 5 ml 11:11:46 Post procedure instruction explained to patient.Patient verbalizes understanding. 11:11:47 Patient needs reinforcement of post procedure teaching. 11:11:49 Procedure and supply charges have been captured, reviewed, submitted and are correct. 11:12:01 Vital chart was stopped 11:12:21 See physician's report for complete and final results. 11:12:24 Report given to Pre/Post Procedure Room. 11:12:27 Patient transfered to Pre/Post Procedure Room with Stretcher. 11:12:29 Procedure ended. 11:12:29 Full Disclosure recording stopped 11:12:34 End room use (Document Last) Intervention Summary Intervention Notes Time ActionType Lesion and Equipment Action# Pressure Duration Attributes Used 11:01:53 Inflate Dist LAD [place] 1 21 00:10 balloon Sci Rankin 1.5 X 20 balloon 11:03:33 Place stent Dist LAD [place] OTW 2 13 00:10 2.5 x 18 stent Device Usage Item Name Manufacture Quantity Catalog Number Hospital Part Current Mini [facility] Lot# / Charge Number Stock Stock Serial# Code Acist Acist 1 [id number] [id number] 963069 278949 20 Syringe [employer] Inc Bag Microtek 1 2002S 011920 22946 122038 5 [employer] Medline Cardinal 1 [id number] 665924 80183 609290 5 Cath Pack Health Terumo 5Fr Terumo 1 [id number] 804109 169289 467312 [address] [place] [address] St Ayaz 1 555456 855398 330011 962415 30 260cm J .035 wire Acist Hand Acist 1 91425 600672 738348 409913 5 Control Medical Systems Inc Acist Acist 1 85490 616961 977329 915406 5 Manifold Medical Systems Inc Diagnostic Cardinal 1 [id number] 209584 68166 050205 30 Infinity Health 5Fr Multipack catheter Tegaderm 4 3M 1 1626W 052062 248930 685307 5 x 4 Cordis 5Fr Cardinal 1 846784 5 Pigtail Health Catheter (MP) Cordis 5Fr Cardinal 1 181442 5 JL 4.0 Health Catheter (MP) Cordis 5Fr Cardinal 1 074543 5 3DRC Health Catheter (MP) [place] Sci [place] 1 [id number] 134869 073769 043292 5 Choice PT Scientific Extra Support J 300cm .014 gu Merit Merit 1 PR4174 615203 451003 295806 15 Mobivery Medical Inflation Kit Terumo 6Fr Terumo 1 [id number] 683282 178153 434471 40 [place] Sheath Cordis 6FR Cardinal 1 [id number] 498211 755751 949235 3 XBLAD 4.0 Health guide catheter [place] Sci [place] 1 [id number] 000964 266394 861163 1 Pogoplug 1.5 X 20 balloon [place] OTW Medtronic 1 [id number] 175792 91422 347819 5 [id number] 2.5 x 18 stent Cordis 6Fr Cardinal 1 EX600 006935 023357 469650 10 [facility] JumpCam Signature Audit [place] Stage Time Signature Unsigned Intra-Procedure 09/27/2017 Dami Villalba 11:12:54 AM RT(R) (CV) Signatures Monitor : Lacey Olea RT Signature : Date : Time : [place] [id number] [place] [address]
[~2017-09-27 07:44] MED LIST changes: +COLACE100 MG PO; +ISOSORBIDE MONO30 M1 PO; +PRAVACHOL20 MG PO; +TERAZOSIN HCL2 MG PO
[2017-09-27 08:12] VITALS: BP 153/93; Ht 182.9 cm; Wt 87.8 kg
[2017-09-27 08:23] LABS: BASOPHILS 0.4 % (0-2); EOSINOPHILS 2.6 % (0-7); HEMATOCRIT 36.4 % (42.0-54.0); HEMOGLOBIN 12.1 g/dL (13.5-17.5); IMMATURE GRANULOCYTES 0.2 % (0-5); LYMPHOCYTES 36.3 % (15-50); MCH 31.3 pg (26.0-34.0); MCHC 33.2 g/dL (31.0-37.0); MCV 94.3 fL (80.0-100.0); MEAN PLATELET VOLUME 9.5 fL (7.4-10.4); MONOCYTES 11.8 % (2-11); NEUTROPHILS 48.7 % (40-80); PLATELET COUNT 262 10x3/uL (130-400); RBC 3.86 10x6/uL (4.20-6.10); RDW 12.1 % (11.5-14.5); WBC 4.7 10x3/uL (4.8-10.8)
[2017-09-27 08:35] LABS: CALC OSMOLALITY 281 mosm/kg (275-300); CARBON DIOXIDE 27.7 mmol/L (21.0-32.0); CHLORIDE - SERUM 103 mmol/L (98-107); GLUCOSE 195 mg/dL (74-106); POTASSIUM - SERUM 3.8 mmol/L (3.5-5.1); SODIUM 139 mmol/L (136-145); UREA NITROGEN 9 mg/dL (7-18); eGFR NON AFRICAN AMERICAN 78 mL/min (90-120)
--- NOTE | 2017-09-27 11:20 | NUR ---
1120 RECEIVED PT FROM EDUCATION ASSOCIATE. PT IS SLEEPING, AWAKENS EASILY TO VERBAL STIMULI. DENIES ANY C/O. DRESSING TO RIGHT GROIN IS CDI, AREA IS SOFT AND NONTENDER. PEDAL PULSES PALPABLE. PT INSTRUCTED TO KEEP RIGHT LEG STRAIGHT AND HEAD TO PILLOW AND VERBALIZES UNDERSTANDING. PEDAL PULSES PALPABLE, CAP REFILL IS BRISK. NO FAMILY AT BEDSIDE, CALL LIGHT IS IN REACH. VSS. NSR
--- NOTE | 2017-09-27 11:35 | NUR ---
1135 PT SLEEPING, AWAKENS EASILY. DENIES NAY C/O. DRESSING CDI, PEDAL PULSES PALPABLE. CALL LIGHT IN REACH.
--- NOTE | 2017-09-27 11:50 | NUR ---
1150 PT DENIES ANY C/O. DRESSING TO RIGHT GROIN IS CDI, AREA SOFT AND NONTENDER. VSS. CALL LIGHT IN REACH. WILL CONTINUE TO MONITOR.
--- NOTE | 2017-09-27 12:05 | NUR ---
1205 DRESSING TO RIGHT GROIN IS CDI, AREA SOFT AND NONTENDER. CALL LIGHT IN REACH. PT SLEEPING, AWAKENS EASILY, DENIES NEEDS AT THIS TIME.
--- NOTE | 2017-09-27 12:55 | NUR ---
1245 PT DENIES ANY C/O. DRESSING CDI, AREA SOFT AND NONTENDER. VSS. CALL LIGHT IN REACH. WILL CONTINUE TO MONITOR.
--- NOTE | 2017-09-27 13:45 | NUR ---
1345 SANDWICH AND PO FLUIDS SERVED. PT DENIES ANY C/O. DRESSING TO RIGHT GROIN IS CDI, AREA IS SOFT AND NONTENDER. PEDAL PULSES PALPABLE. PT DENIES ANY C/O AT THIS TIME. CALL LIGHT IN REACH, WILL CONTINUE TO MONITOR.
--- NOTE | 2017-09-27 14:45 | NUR ---
1445 HOB ELEVATED, PT DENIES ANY C/O. DRESSING CDI, VSS.
--- NOTE | 2017-09-27 15:00 | NUR ---
1500 IV DC'D WITH CATH INTACT. ASSISTED PT WITH DRESSING FOR DC TO HOME. PT VOIDED 700 CC CLEAR YELLOW URINE TO URINAL. RIGHT GROIN STABLE WITH NO BLEEDING OR HEMATOMA NOTED.
--- NOTE | 2017-09-27 15:20 | NUR ---
1520 DC INSTRUCTIONS REVIEWED WITH PT WHO VERBALIZES UNDERSTANDING. PT ESCORTED TO PRIVATE AUTO VIA WC BY NURSE WITH FRIND DRIVING HIM HOME.
--- NOTE | 2017-09-29 14:14 | OP ---
PATIENT NAME: EDELMIRA BERNSTEIN MEDICAL RECORD: [id number] :[birth year] LOCATION:D.[facility] ADMISSION DATE: SURGEON: PUNEET CARDENAS MD DATE OF OPERATION: 09/27/2017 PROCEDURES: 1. PTCA stent to LAD. 2. Left heart catheterization. 3. Selective coronary angiography. 4. Left ventriculogram. PROCEDURE IN DETAIL: After informed consent was obtained and after a detailed explanation of the risks, benefits as well as alternative therapies, the patient elected to proceed with angiogram and angioplasty. The right femoral area was prepped and draped in normal sterile fashion. The right femoral artery was cannulated via modified Seldinger technique with placement of 6-[place] sheath. All catheters exchanged through this sheath. FINDINGS: Left ventriculogram was performed in standard 30-degree RICKS view, reveals global hypokinesis throughout all segments. Overall ejection fraction markedly depressed at 20%. SELECTIVE CORONARY ANGIOGRAPHY: 1. Left main showed no significant angiographic disease. 2. Left anterior descending has a previously placed stent in the mid distal vessel with 99% in-stent restenosis. 3. Left circumflex shows moderate irregularities, but no flow-limiting stenosis. 4. The right coronary artery has previously placed stent that is widely patent with no significant restenosis. No disease elsewise throughout the RCA or its branches. PTCA STENT OF THE LAD: The stent used was a 2.5 x 18 mm Jermyn. Result was 0% residual stenosis. OVERALL IMPRESSION: Successful percutaneous transluminal coronary angioplasty stent of the left anterior descending going from 99% initial stenosis to 0% residual. TRANSINT:[id number] Voice Confirmation ID: [id number] DOCUMENT ID: [id number] PUNEET CARDENAS MD at 1414 CC: [id number] DICTATION DATE: 09/27/17 1109 PLASMA CENTER TECHNICIAN: 09/27/17 1122 DEP CLI 09/27/17 [place] [id number]
== END | disposition home or self-care (01) ==
LOC: D.CATH 07:44
PROVIDERS: Internal Medicine Interventional Cardiology
DX: I25.119 Atherosclerotic heart disease of native coronary artery with unspecified angina pectoris (principal); T82.855A Stenosis of coronary artery stent, initial encounter; Z01.812 Encounter for preprocedural laboratory examination
CPT/HCPCS: 93458; C9600

== ENCOUNTER 2018-10-16 16:30 | Emergency (ER) | payer MEDICARE ==
[~2018-10-16] VITALS: Ht 182.9 cm; Wt 86.4 kg
[2018-10-16 16:44] VITALS: Ht 182.9 cm; Wt 86.4 kg
[2018-10-16 17:22] LABS: BASOPHILS 0.4 % (0-2); EOSINOPHILS 2.5 % (0-7); HEMATOCRIT 37.3 % (42.0-54.0); HEMOGLOBIN 12.2 g/dL (13.5-17.5); IMMATURE GRANULOCYTES 0.2 % (0-5); MCH 31.9 pg (26.0-34.0); MCHC 32.7 g/dL (31.0-37.0); MCV 97.4 fL (80.0-100.0); MONOCYTES 12.5 % (2-11); NEUTROPHILS 46.4 % (40-80); PLATELET COUNT 278 10x3/uL (130-400); RBC 3.83 10x6/uL (4.20-6.10); RDW 12.2 % (11.5-14.5); WBC 5.6 10x3/uL (4.8-10.8)
[2018-10-16 17:48] LABS: ALBUMIN 3.8 g/dL (3.4-5.0); ALKALINE PHOSPHATASE 58 U/L (46-116); ALT (SGPT) 18 U/L (10-68); BILIRUBIN - TOTAL 0.36 mg/dL (0.2-1.3); CALC OSMOLALITY 281 mosm/kg (275-300); CALCIUM 8.9 mg/dL (8.5-10.1); CHLORIDE - SERUM 104 mmol/L (98-107); CREATININE - SERUM 1.1 mg/dL (0.6-1.3); POTASSIUM - SERUM 4.4 mmol/L (3.5-5.1); PROTEIN - SERUM 7.9 g/dL (6.4-8.2); SODIUM 141 mmol/L (136-145); UREA NITROGEN 16 mg/dL (7-18); eGFR NON AFRICAN AMERICAN 70 mL/min (90-120)
[2018-10-16 17:59] LABS: CREATINE KINASE 143 UL (21-232); PRO BNP 119 pg/mL (0-125); TROPONIN-I < 0.017 ng/mL (0.000-0.060)
[2018-10-16 18:10] LABS: GLUCOSE 100 mg/dL (74-106)
[2018-10-16] MEDS ORDERED: MEDROL DOSE PACK4 MG PO (19:05)
[2018-10-16 19:33] VITALS: BP 168/100
== END 2018-10-16 19:41 | disposition home or self-care (01) ==
LOC: D.ER 16:30
PROVIDERS: Family Medicine
DX: J44.1 Chronic obstructive pulmonary disease with (acute) exacerbation (principal); R09.89 Other specified symptoms and signs involving the circulatory and respiratory systems

== ENCOUNTER 2019-01-26 17:34 | Emergency (ER) | payer MEDICARE ==
[~2019-01-26] VITALS: Ht 182.9 cm; Wt 86.4 kg
[~2019-01-26 17:34] MED LIST changes: +MEDROL DOSE PACK4 MG PO
[2019-01-26 17:49] VITALS: Ht 182.9 cm; Wt 86.4 kg
[2019-01-26 18:21] LABS: BASOPHILS 0.3 % (0-2); EOSINOPHILS 2.7 % (0-7); HEMATOCRIT 35.7 % (42.0-54.0); HEMOGLOBIN 11.7 g/dL (13.5-17.5); IMMATURE GRANULOCYTES 0.2 % (0-5); LYMPHOCYTES 36.5 % (15-50); MCH 31.4 pg (26.0-34.0); MCHC 32.8 g/dL (31.0-37.0); MCV 95.7 fL (80.0-100.0); MONOCYTES 9.1 % (2-11); NEUTROPHILS 51.2 % (40-80); PLATELET COUNT 272 10x3/uL (130-400); RBC 3.73 10x6/uL (4.20-6.10)
[2019-01-26 18:28] LABS: APTT 28.8 SECONDS (22.8-39.4); INR 1.07 (0.85-1.17); PROTIME 13.4 SECONDS (11.6-15.0)
[2019-01-26 18:43] LABS: ALBUMIN 3.7 g/dL (3.4-5.0); ALKALINE PHOSPHATASE 81 U/L (46-116); ALT (SGPT) 35 U/L (10-68); BILIRUBIN - TOTAL 0.44 mg/dL (0.2-1.3); CALC OSMOLALITY 281 mosm/kg (275-300); CALCIUM 9.1 mg/dL (8.5-10.1); CARBON DIOXIDE 29.8 mmol/L (21.0-32.0); CHLORIDE - SERUM 102 mmol/L (98-107); CREATININE - SERUM 1.1 mg/dL (0.6-1.3); PROTEIN - SERUM 7.4 g/dL (6.4-8.2); SODIUM 139 mmol/L (136-145); UREA NITROGEN 15 mg/dL (7-18); eGFR NON AFRICAN AMERICAN 70 mL/min (90-120)
[2019-01-26 18:44] LABS: GLUCOSE 155 mg/dL (74-106)
[2019-01-26 18:50] LABS: CKMB 1.6 U/L (0.0-3.6); CREATINE KINASE 186 UL (21-232); PRO BNP 167 pg/mL (0-125); TROPONIN-I 0.018 ng/mL (0.000-0.060)
[2019-01-26] MEDS ORDERED: ALBUTEROL SULF8.5 GM INH (22:10)
[2019-01-26] MEDS ORDERED: VIBRAMYCIN 100100 MG PO (22:10)
[2019-01-26 22:43] VITALS: BP 170/99
== END 2019-01-26 22:43 | disposition home or self-care (01) ==
LOC: D.ER 17:34
PROVIDERS: Emergency Medicine
DX: E11.9 Type 2 diabetes mellitus without complications (principal); J44.1 Chronic obstructive pulmonary disease with (acute) exacerbation; I25.10 Atherosclerotic heart disease of native coronary artery without angina pectoris

== ENCOUNTER → 2019-05-02 07:40 | Outpatient (CLI) | payer MEDICARE ==
[2019-01-26 17:49] VITALS: BMI 25.8
[~2019-05-02 07:40] MED LIST changes: +ALBUTEROL SULF8.5 GM INH; +VIBRAMYCIN 100100 MG PO
== END | disposition home or self-care (01) ==
LOC: D.RT 07:40
PROVIDERS: ATTEND Internal Medicine Pulmonary Disease
DX: J44.9 Chronic obstructive pulmonary disease, unspecified (principal)

== ENCOUNTER 2019-09-25 13:35 | Emergency (ER) | payer MEDICARE ==
[~2019-09-25] VITALS: Ht 182.9 cm; Wt 86.4 kg
[2019-09-25 13:38] VITALS: Ht 182.9 cm; Wt 86.4 kg
[2019-09-25] MEDS ORDERED: ZPAK PO (16:11)
[2019-09-25] MEDS ORDERED: BACLOFEN20 M1 PO (16:11)
[2019-09-25] MEDS ORDERED: MUCINEX DM ER1 EAC1 PO (16:11)
[2019-09-25 16:23] VITALS: BP 174/101
== END 2019-09-25 16:23 | disposition home or self-care (01) ==
LOC: D.ER 13:35
DX: M54.2 Cervicalgia (principal); V49.50XA Passenger injured in collision with unspecified motor vehicles in traffic accident, initial encounter; Y93.9 Activity, unspecified; Y92.9 Unspecified place or not applicable; J06.9 Acute upper respiratory infection, unspecified; M79.18 Myalgia, other site; R51 Headache; E11.9 Type 2 diabetes mellitus without complications; Z79.84 Long term (current) use of oral hypoglycemic drugs; I10 Essential (primary) hypertension; N40.0 Benign prostatic hyperplasia without lower urinary tract symptoms; J44.9 Chronic obstructive pulmonary disease, unspecified

== ENCOUNTER → 2020-04-01 12:55 | Outpatient (CLI) | payer MEDICARE ==
[2019-09-25 13:38] VITALS: BMI 25.8
[~2020-04-01 12:55] MED LIST changes: +BACLOFEN20 M1 PO; +MUCINEX DM ER1 EAC1 PO; +ZPAK PO
== END | disposition home or self-care (01) ==
LOC: D.LABREF 12:55
PROVIDERS: ATTEND Internal Medicine Pulmonary Disease
DX: Z11.59 Encounter for screening for other viral diseases (principal); J44.9 Chronic obstructive pulmonary disease, unspecified

== ENCOUNTER → 2020-04-02 10:30 | Outpatient (CLI) | payer MEDICARE ==
[2019-09-25 13:38] VITALS: BMI 25.8
== END | disposition home or self-care (01) ==
LOC: D.CT 03-13 13:00
PROVIDERS: ATTEND Internal Medicine Pulmonary Disease
DX: J44.9 Chronic obstructive pulmonary disease, unspecified (principal); R91.1 Solitary pulmonary nodule

== ENCOUNTER 2020-04-16 17:07 | Inpatient (IN) | payer MEDICARE ==
[~2020-04-16] VITALS: Ht 182.9 cm; Wt 89.8 kg
[2020-04-17 08:38] VITALS: Ht 182.9 cm; Wt 89.8 kg
[2020-04-18 12:40] VITALS: BP 141/79
== END 2020-04-18 13:00 | disposition home or self-care (01) | DRG 872 ==
LOC: D.ER 17:07 → D.ICU 20:32 → D.M2 04-17 17:30
PROVIDERS: ADMIT Family Medicine; ATTEND Family Medicine
DX: A41.9 Sepsis, unspecified organism (principal); I10 Essential (primary) hypertension; E78.5 Hyperlipidemia, unspecified; I25.10 Atherosclerotic heart disease of native coronary artery without angina pectoris; J44.9 Chronic obstructive pulmonary disease, unspecified; E11.65 Type 2 diabetes mellitus with hyperglycemia; R00.0 Tachycardia, unspecified

== ENCOUNTER 2020-04-25 13:50 | Emergency (ER) | payer MEDICARE ==
[~2020-04-25] VITALS: Ht 182.9 cm; Wt 90.0 kg
[2020-04-25 14:05] VITALS: Ht 182.9 cm; Wt 90.0 kg
[2020-04-25 14:16] LABS: BASOPHILS 0.1 % (0-2); EOSINOPHILS 1.5 % (0-7); HEMATOCRIT 36.8 % (42.0-54.0); HEMOGLOBIN 11.6 g/dL (13.5-17.5); IMMATURE GRANULOCYTES 0.4 % (0-5); LYMPHOCYTES 20.9 % (15-50); MCH 30.3 pg (26.0-34.0); MCHC 31.5 g/dL (31.0-37.0); MCV 96.1 fL (80.0-100.0); MEAN PLATELET VOLUME 9.8 fL (7.4-10.4); MONOCYTES 8.9 % (2-11); NEUTROPHILS 68.2 % (40-80); RBC 3.83 10x6/uL (4.20-6.10); RDW 13.3 % (11.5-14.5); WBC 7.2 10x3/uL (4.8-10.8)
[2020-04-25 14:18] LABS: PLATELET COUNT 313 10x3/uL (130-400)
[2020-04-25 14:25] LABS: CALCIUM 9.6 mg/dL (8.5-10.1); CARBON DIOXIDE 30.8 mmol/L (21.0-32.0); CREATININE - SERUM 1.3 mg/dL (0.6-1.3); POTASSIUM - SERUM 4.8 mmol/L (3.5-5.1)
[2020-04-25 14:30] LABS: BILIRUBIN - TOTAL 0.44 mg/dL (0.2-1.3); PROTEIN - SERUM 7.8 g/dL (6.4-8.2)
[2020-04-25 18:29] VITALS: BP 152/90
== END 2020-04-25 18:30 | disposition home or self-care (01) ==
LOC: D.ER 13:50
PROVIDERS: Family Medicine
DX: E11.65 Type 2 diabetes mellitus with hyperglycemia (principal); Z86.73 Personal history of transient ischemic attack (TIA), and cerebral infarction without residual deficits; I10 Essential (primary) hypertension; J44.9 Chronic obstructive pulmonary disease, unspecified; Z79.84 Long term (current) use of oral hypoglycemic drugs

== ENCOUNTER 2020-05-19 12:32 | Emergency (ER) | payer MEDICARE ==
[~2020-05-19] VITALS: Ht 182.9 cm; Wt 86.4 kg
[2020-05-19 12:51] VITALS: BP 158/96; Ht 182.9 cm; Wt 86.4 kg
[2020-05-19] MEDS ORDERED: LIORESAL 10 MG10 MG PO (14:51)
[2020-05-19] MEDS ORDERED: VOLTAREN25 MG PO (14:51)
== END 2020-05-19 15:15 | disposition home or self-care (01) ==
LOC: D.ER 12:32
DX: S49.92XA Unspecified injury of left shoulder and upper arm, initial encounter (principal); V89.2XXA Person injured in unspecified motor-vehicle accident, traffic, initial encounter; Y93.9 Activity, unspecified; Y92.9 Unspecified place or not applicable; E11.9 Type 2 diabetes mellitus without complications; Z86.73 Personal history of transient ischemic attack (TIA), and cerebral infarction without residual deficits; I10 Essential (primary) hypertension; J44.9 Chronic obstructive pulmonary disease, unspecified; Z79.84 Long term (current) use of oral hypoglycemic drugs; M54.2 Cervicalgia; M25.512 Pain in left shoulder

== ENCOUNTER 2020-08-07 11:46 | Emergency (ER) | payer MEDICARE ==
[~2020-08-07] VITALS: Ht 182.9 cm; Wt 90.0 kg
[~2020-08-07 11:46] MED LIST changes: +LIORESAL 10 MG10 MG PO; +VOLTAREN25 MG PO
[2020-08-07 11:52] VITALS: Ht 182.9 cm; Wt 90.0 kg
[2020-08-07 12:07] LABS: BASOPHILS 0.1 % (0-2); EOSINOPHILS 0.2 % (0-7); HEMATOCRIT 34.6 % (42.0-54.0); HEMOGLOBIN 10.7 g/dL (13.5-17.5); IMMATURE GRANULOCYTES 0.2 % (0-5); LYMPHOCYTES 8.7 % (15-50); MCH 29.2 pg (26.0-34.0); MCHC 30.9 g/dL (31.0-37.0); MCV 94.3 fL (80.0-100.0); MEAN PLATELET VOLUME 9.4 fL (7.4-10.4); MONOCYTES 5.4 % (2-11); NEUTROPHILS 85.4 % (40-80); RBC 3.67 10x6/uL (4.20-6.10); RDW 13.2 % (11.5-14.5)
[2020-08-07 12:13] LABS: PLATELET COUNT 244 10x3/uL (130-400)
[2020-08-07 12:17] LABS: CALC OSMOLALITY 277 mosm/kg (275-300); CALCIUM 9.2 mg/dL (8.5-10.1); CARBON DIOXIDE 30.4 mmol/L (21.0-32.0); CHLORIDE - SERUM 104 mmol/L (98-107); CREATININE - SERUM 1.2 mg/dL (0.6-1.3); GLUCOSE 142 mg/dL (74-106); POTASSIUM - SERUM 4.1 mmol/L (3.5-5.1); SODIUM 137 mmol/L (136-145); UREA NITROGEN 17 mg/dL (7-18); eGFR NON AFRICAN AMERICAN 63 mL/min (90-120)
[2020-08-07 12:18] LABS: APTT 27.4 SECONDS (22.8-39.4); INR 1.07 (0.85-1.17); PROTIME 13.9 SECONDS (11.6-15.0)
[2020-08-07 12:37] LABS: ALBUMIN 3.8 g/dL (3.4-5.0); ALKALINE PHOSPHATASE 59 U/L (30-120); ALT (SGPT) 37 U/L (10-68); BILIRUBIN - TOTAL 0.44 mg/dL (0.2-1.3); CKMB 3.1 U/L (0.0-3.6); CREATINE KINASE 224 UL (21-232); PRO BNP 973 pg/mL (0-125); PROTEIN - SERUM 7.3 g/dL (6.4-8.2)
[2020-08-07 12:57] LABS: TROPONIN-I 0.107 ng/mL (0.000-0.060)
[2020-08-07 17:30] VITALS: BP 137/56
== END 2020-08-07 17:30 | disposition home or self-care (01) ==
LOC: D.ER 11:46
PROVIDERS: Family Medicine
DX: I11.0 Hypertensive heart disease with heart failure (principal); I50.9 Heart failure, unspecified; J81.1 Chronic pulmonary edema; E11.9 Type 2 diabetes mellitus without complications; Z86.73 Personal history of transient ischemic attack (TIA), and cerebral infarction without residual deficits; J44.9 Chronic obstructive pulmonary disease, unspecified; Z79.84 Long term (current) use of oral hypoglycemic drugs

== ENCOUNTER → 2020-08-20 10:22 | Outpatient (CLI) | payer MEDICARE ==
[2020-08-07 11:52] VITALS: BMI 26.9
== END | disposition home or self-care (01) ==
LOC: D.HCCECHO 10:22
PROVIDERS: ATTEND Internal Medicine Cardiovascular Disease
DX: I25.10 Atherosclerotic heart disease of native coronary artery without angina pectoris (principal)